=== PATIENT | male | born 1960 | race Caucasian/White ===

== ENCOUNTER 2020-11-03 00:08 | Emergency (ER) | payer OTHER ==
--- NOTE | 2020-11-03 00:27 | EDM.PDOC ---
ED HPI GENERAL MEDICAL PROBLEM - General Chief Complaint: Upper Extremity Injury/Pain Stated Complaint: INJURY TO LEFT FINGER Time Seen by Provider: 11/03/20 00:25 Source of Information: Reports: Patient History Limitations: Reports: No Limitations - History of Present Illness INITIAL COMMENTS - FREE TEXT/NARRATIVE: Patient sustained a left thumb laceration after grazing it on a sharp wire at work @1 hour ago. Tetanus vaccine is UTD. He is right hand dominant. Duration: Hour(s): (1) Location: Reports: Lower Extremity, Left Severity: Mild - Related Data Allergies Allergy/AdvReac Type Severity Reaction Status Date / Time No Known Allergies Allergy Verified 11/03/20 00:25 Home Meds: Home Meds cephALEXin [Keflex] 500 mg PO TID #21 cap 11/03/20 [Rx] Past Medical History Cardiovascular History: Reports: Hypertension Endocrine/Metabolic History: Reports: Diabetes, Type II Review of Systems - Review of Systems Review Of Systems: Comprehensive ROS is negative, except as noted in HPI. ED EXAM, GENERAL - Physical Exam Exam: See Below Exam Limited By: No Limitations General Appearance: Alert, WD/WN, No Apparent Distress Head: Atraumatic, Normocephalic Neck: Full Range of Motion Respiratory/Chest: No Respiratory Distress Peripheral Pulses: 2+: Radial (L) Extremities: Normal Range of Motion, Other (1 cm superficial laceration to palmar aspect of left thumb overlying distal phalanx. ROM intact) Neurological: Alert, No Motor/Sensory Deficits Psychiatric: Normal Affect, Normal Mood Skin Exam: Other (as above) ED TRAUMA EXTREMITY PROCEDURES - Laceration/Wound Repair Left Digit - 1st (Thumb) Lac/Wound Length In cm: 1 Appearance: Superficial, Clean Distal NVT: Neuro & Vascular Intact Skin Prep: Chlorhexidine (Hibiciens) Exploration/Debridement/Repair: No Foreign Material Found Closed With: Wound Adhesive Drain Placement: No Tetanus Status Addressed: Yes Complications: No Course - Vital Signs Text/Narrative:: BP 166/97, HR 107, Sa02 95% RA, T99 F, RR 16 Departure - Departure Time of Disposition: 00:34 Disposition: Home, Self-Care 01 Condition: Good Clinical Impression: Finger laceration Qualifiers: Encounter type: initial encounter Finger: thumb Damage to nail status: without damage Foreign body presence: without foreign body Laterality: left Qualified Code(s): S61.012A - Laceration without foreign body of left thumb without damage to nail, initial encounter - Discharge Information *PRESCRIPTION DRUG MONITORING PROGRAM REVIEWED*: No *COPY OF PRESCRIPTION DRUG MONITORING REPORT IN PATIENT PHILIPPE: Not Applicable Prescriptions: cephALEXin [Keflex] 500 mg PO TID #21 cap Instructions: Laceration Care, Adult, [id number] Referrals: Meaghan Ruffin, [employer] [Primary Care Provider] - Forms: ED Department Discharge Additional Instructions: Fill the prescription for Keflex at [facility] and take as directed. Follow up with symptoms or signs of infection.
[2020-11-03] MEDS ORDERED: Cephalexin 500 MG Cap PO ONE (00:31)
== END 2020-11-03 01:00 | disposition home or self-care (01) ==
LOC: FB.ED 00:08
DX: S61.012A Laceration without foreign body of left thumb without damage to nail, initial encounter (principal); E11.9 Type 2 diabetes mellitus without complications; I10 Essential (primary) hypertension; W26.8XXA Contact with other sharp object(s), not elsewhere classified, initial encounter; Y99.0 Civilian activity done for income or pay
CPT/HCPCS: 12001; 99282; 99283